=== PATIENT | male | born 1980 | race Caucasian/White ===

== ENCOUNTER 2018-02-07 10:23 | Emergency (ER) | payer SELFPAY ==
[2018-02-07] MEDS ORDERED: HYDROcodone/Acetaminophen 10/325 mg Tablet ONE (11:16)
[2018-02-07 11:17] LABS: #Basophils 0.1 thou/uL (0.0-0.2); #Eosinphils 0.1 thou/uL (0.0-0.7); #Monocytes 1.1 thou/uL (0.11-0.59); #Neutrophils 12.4 thou/uL (1.40-6.50); %Basophils 0.5 % (0.0-1.0); %Eosinophils 0.9 % (0.0-10.0); %Lymphocytes 12.7 % (21.0-51.0); %Monocytes 7.3 % (0.0-10.0); %Neutrophils 78.7 % (42.0-75.0); Hemoglobin 15.6 g/dL (14.0-18.0); Mean Corpuscular HGB CONC 35.1 g/dL (32.0-36.0); Mean Corpuscular Hemoglobin 31.9 pg (27.0-31.0); Mean Platelet Volume 7.2 fL (7.4-10.4); Platelet Count 238 thou/uL (130-400); RBC Distribution Width 11.7 % (11.5-14.5); White Blood Cell (WBC) Count 15.8 thou/uL (4.8-10.8)
[2018-02-07] MEDS ORDERED: Ondansetron ODT 4 MG TAB ONE (11:17)
[2018-02-07 11:35] LABS: Bilirubin Negative (Negative); Blood, Urine Negative (Negative); Clarity CLEAR (Clear); Glucose, Urine (Dipstick) Negative (Negative); Leukocyte Small (Negative); Nitrite Negative (Negative); Protein, Urine (Dipstick) Negative (Neg-Trace); Specific Gravity, Urine 1.017 (1.002-1.036); Urobilinogen 0.2 mg/dL (0.2-1.0); pH, Urine 5.5 (5.0-9.0)
[2018-02-07 11:37] LABS: Bacteria/HPF None Seen HPF (None Seen); Hyaline Casts/LPF 0-3 HYALINE CAST LPF (0-3 Hyaline); Pathc Cast-AUWi Flag 0.14 (0-2.49); RBC/HPF None Seen HPF (0-3); Squamous Epithelial None Seen HPF (0-3); WBC/HPF 0-3 HPF (0-3)
[2018-02-07 11:38] LABS: ALT (SGPT) 26 U/L (8-55); AST (SGOT) 19 U/L (5-34); Albumin 4.4 g/dL (3.5-5.0); Alkaline Phosphatase 57 U/L (40-150); Anion Gap 14 mmol/L (10-20); BUN (Urea Nitrogen) 25 mg/dL (8.9-20.6); Bilirubin, Total 0.6 mg/dL (0.2-1.2); Calc. Creatinine Clearance 0 mL/min (70-130); Calcium 9.7 mg/dL (7.8-10.44); Carbon Dioxide 26 mmol/L (22-29); Chloride 101 mmol/L (98-107); Estimated GFR-MDRD 36; Glucose 139 mg/dL (70-105); Lipase 23 U/L (8-78); Protein, Total 7.4 g/dL (6.0-8.3); Sodium 137 mmol/L (136-145)
--- NOTE | 2018-02-07 12:00 | RAD ---
CHEST ONE VIEW: History: 37-year-old male with history of chest pain. FINDINGS: Heart size is normal. The lungs are clear. No confluent pneumonia, overt edema, pleural effusion, or other acute process. IMPRESSION: No acute intrathoracic disease. POS: OFF
--- NOTE | 2018-02-07 14:15 | CT ---
CT ABDOMEN AND PELVIS WITHOUT IV CONTRAST: Date: 02/07/18 Multiple axial tomograms obtained through abdomen and pelvis without IV enhancement. INDICATION: Abdominal pain. Left-sided flank pain. FINDINGS: Images through the lung bases reveal a nodule measuring 1.2 cm in the left lung base peripherally on the very first image. This nodular density is incompletely evaluated on this study. Liver, spleen, and pancreas appear unremarkable given the limitations of a noncontrast Study. Adrenal glands appear normal. There is mild left hydronephrosis. There is a 6.0 mm calculus in the proximal left ureter. There is a 6.0 mm calculus in the lower pole collecting structures of the left kidney which is nonobstructing. No evidence of calculus in the right urinary system. Small bowel loops appear normal. Appendix is normal. Scattered diverticula in the left colon. Nonspec ific periaortic lymph nodes. Aorta is normal caliber. IMPRESSION: 1. 6.0 mm obstructing calculus in the proximal left ureter. 2. 6.0 mm nonobstructing calculus in the lower pole collecting structures of the left kidney. 3. 1.2 cm nodular density in the left lung base, which is incompletely evaluated on this study. Magan mmend follow-up noncontrast CT chest. CODE LN. POS: ARTURO
[2018-02-07] MEDS ORDERED: Morphine 2 MG/ML SYRINGE ONE (14:22)
[2018-02-07] MEDS ORDERED: Ondansetron HCl/PF 4 MG/2 ML Vial ONE (14:22)
== END 2018-02-07 15:01 | disposition home or self-care (01) ==
LOC: ERS 10:23
DX: N13.2 Hydronephrosis with renal and ureteral calculous obstruction (principal); R79.89 Other specified abnormal findings of blood chemistry
CPT/HCPCS: 36415; 71045; 74176; 80053; 81003; 81015; 83690; 85025; 87086; 96361; 96374; 96375; J2270; J2405; Q0162